=== PATIENT | female | born 1965 | race Caucasian/White ===

== ENCOUNTER → 2016-07-20 | Day surgery (SDC) | payer OTHER ==
--- NOTE | 2016-07-19 11:00 | History & Physical Pre-Op ---
General Information and HPI History of Present Illness: Patient is a 50-year-old 5 para 5 with heavy menstrual periods Allergies/Medications Allergies: Coded Allergies: codeine (NAUSEA / VOMITING 07/15/16) Home Med list Amlodipine Besylate 5 MG TABLET 1 TAB PO DAILY HTN (Reported) Past History Surgical History Pertinent Surgical History: non-contributory Review of Systems Review of Systems Constitutional: Reports: no symptoms. EENTM: Reports: no symptoms. Cardiovascular: Reports: no symptoms. Respiratory: Reports: no symptoms. GI: Reports: no symptoms. Genitourinary: Reports: see HPI. Musculoskeletal: Reports: no symptoms. Skin: Reports: no symptoms. Neurological/Psychological: Reports: no symptoms. Hematologic/Endocrine: Reports: no symptoms. Immunologic/Allergic: Reports: no symptoms. All Other Systems: Reviewed and Negative Exam & Diagnostic Data Last 24 Hrs of Vital Signs/I&O Vital signs stable Physical Exam: Chest: Clear to auscultation Cardiovascular: Normal S1, S2 Abdomen: Soft nontender Pelvic: Deferred to the OR Extremities: No clubbing cyanosis or edema Assessment/Plan Assessment/Plan: Menorrhagia D&C, hysteroscopy As Ranked By This Provider Problem List: 1. Menorrhagia
[~2016-07-20] VITALS: Ht 154.9 cm; Wt 119.7 kg
[~2016-07-20] MED LIST: AMLODIPINE BESYL5 M1 PO; IBUPROFEN800 M1 PO; MACROBID 100 M100 MG PO; PERCOCET 5-3251 EACH PO
--- NOTE | 2016-07-20 17:54 | Operative Report ---
Operative/Inv Procedure Report Surgery Date: 07/20/16 Name of Procedure: D&C hysteroscopy Pre-Operative Diagnosis: Menorrhagia Post-Operative Diagnosis: Same Estimated Blood Loss: less than 50ml Surgeon/Shagger: DAVE MARCIAL MD Anesthesia: local monitored anesthesi Operative/Procedure Note Note: The patient was brought to the operating room and placed on the OR table in the dorsal supine position. She was given adequate anesthesia and repositioned in a modified dorsal lithotomy. She was prepped and draped in usual sterile fashion. A weighted speculum was inserted into the vagina with the help of a Woolrich retractor a single-toothed tenaculum was attached to the anterior lip of cervix. Cervix was injected with 1% lidocaine with epinephrine 2-1/2 mL in each quadrant. An endocervical curettage was performed revealing a small amount of tissue. The uterus is then sounded to 8 cm. The cervix was serially dilated to accommodate the hysteroscope which was placed into the fundus and the saline infusion was activated. No abnormal findings were noted no polyps or fibroids or other. The hysteroscope was removed and the cervix was further dilated. Sharp curettage followed revealing a moderate amount of tissue. The end of the procedure hemostasis was good the instruments were removed and the patient was awakened and sent to recovery in good condition. All needle, sponge, and is recalcitrant correct at the end of the procedure 2.
== END ==
LOC: STS 01:12
DX: N92.0 Excessive and frequent menstruation with regular cycle (principal); N85.8 Other specified noninflammatory disorders of uterus; I10 Essential (primary) hypertension
CPT/HCPCS: 81025; 88305; J2250

== ENCOUNTER 2016-08-24 03:39 | Inpatient (IN) | payer OTHER ==
[~2016-08-24] VITALS: Ht 154.9 cm; Wt 119.3 kg
[~2016-08-24 03:39] MED LIST changes: -IBUPROFEN800 M1 PO; -MACROBID 100 M100 MG PO; -PERCOCET 5-3251 EACH PO
--- NOTE | 2016-08-24 07:10 | History & Physical Pre-Op ---
General Information and HPI Exam Limitations: no limitations History of Present Illness: This patient is a 50-year-old 5 para 5 with history of severe menorrhagia who presents for total abdominal hysterectomy and bilateral salpingectomy. She recently underwent a D&C for tissue diagnosis to rule out adenocarcinoma and is admitted today for definitive surgery. Allergies/Medications Allergies: Coded Allergies: acetaminophen (From PERCOCET) (Intermediate, ITCH 08/23/16) oxycodone (From PERCOCET) (Intermediate, ITCH 08/23/16) codeine (NAUSEA / VOMITING 07/15/16) Home Med list Amlodipine Besylate 5 MG TABLET 1 TAB PO DAILY HTN (Reported) Past History Medical History Cardiovascular: hypertension Isolation History: Standard Surgical History Pertinent Surgical History: D&C Past Family/Social History Psychosocial History Smoking Status: Never Smoked Review of Systems Review of Systems Constitutional: Denies: no symptoms, see HPI, chills, diaphoresis, fever, malaise, weakness, unexplained weight loss. EENTM: Denies: no symptoms, see HPI, blurred vision, double vision, visual changes, eye pain, eye drainage, eye tearing, icterus, ear discharge, ear pain, ear redness, hearing changes, nasal congestion, epistaxis, nasal pain, throat pain, throat swelling, mouth pain, tooth pain. Cardiovascular: Denies: no symptoms, see HPI, chest pain, edema, orthopena, palpitations, peripheral edema, syncope. Respiratory: Denies: no symptoms, see HPI, cough, hemoptysis, orthopnea, short of breath, sputum production, stridor, wheezing. GI: Denies: no symptoms, see HPI, abdominal pain, bloating, constipation, diarrhea, distention, bowel incontinence, melena, nausea, bloody stool, changes in stool, vomiting, steatorrhea. Genitourinary: Reports: see HPI. Musculoskeletal: Denies: no symptoms, see HPI, back pain, gout, joint pain, joint swelling, muscle pain, muscle stiffness, neck pain. Skin: Denies: no symptoms, see HPI, cysts, change in skin color, change in hair/nails, dryness, erythema, jaundice, lesions, lymphangitis, lumps, moles, rash. Neurological/Psychological: Denies: no symptoms, see HPI, anxiety, ataxia, cognitive dysfunction, confusion, depressed, dementia, emotional problems, headache, numbness, paresthesia, pre- existing deficit, petit mal seizures, tingling, tremors, tonic-clonic seizures, unable to move lower ext, unable to move upper ext, weakness, other. Hematologic/Endocrine: Denies: no symptoms, see HPI, bruising, bleeding, polyuria, polydipsia, other. Immunologic/Allergic: Denies: no symptoms, see HPI, splenectomy, HIV/AIDS, lymphadenopathy, other. All Other Systems: Reviewed and Negative Exam & Diagnostic Data Last 24 Hrs of Vital Signs/I&O Intake & Output 08/24 0800 08/24 0000 08/23 1600 Intake Total Output Total Balance Patient 261 lb Weight Physical Exam: HEENT: Normocephalic atraumatic Chest: Clear to auscultation Cardiovascular: Normal S1, S2 Abdomen: Soft, nontender, no mass Pelvic: Normal external genitalia, normal vagina, no descensus of uterus or cervix Extremities: No clubbing cyanosis or edema Neurologic: Nonfocal Assessment/Plan Assessment/Plan: Menorrhagia Total abdominal hysterectomy, bilateral salpingectomy. Bilateral oophorectomy As Ranked By This Provider Problem List: 1. Menorrhagia
--- NOTE | 2016-08-24 08:26 | Operative Report ---
Operative/Inv Procedure Report Surgery Date: 08/24/16 Name of Procedure: cystoscopY: bilateral stent insertion Pre-Operative Diagnosis: Menometrorrhagia Post-Operative Diagnosis: Same Estimated Blood Loss: scant Surgeon/Preparator: MD ALENA GARCIA-UROLOGY Anesthesia: general endotracheal tube Drains: 16FR LEONG Specimens: UCX Complications: NONE Operative/Procedure Note Note: The patient was taken to the operating room and placed on the OR table in supine position. Timeout was performed, with the patient awake, to confirm identify, planned procedures, anesthesia, antibiotics and other pertinent margaret-operative information. After adequate anesthesia, and IV antibiotics, the patient was placed in lithotomy Yellow-fin stirrups. She was then draped and prepped in the usual surgical fashion, including a vaginal prep. A 22 Greek cystoscope sheath with a 30 angle lens was inserted into the bladder without significant difficulty. The bladder was thoroughly and systematically examined, and was noted to be free of tumor, free of stone, free of endometriosis. Both ureteral orifices were in their orthotopic positions with clear reflux bilaterally. Under direct visualization the left orifice was intubated with a 5 Greek whistle-tip catheter, which was advanced easily into the left kidney pelvis. The right ureteral orifice was intubated with a second 5 Greek ureteral whistle tip catheter, and advanced into the right renal pelvis without difficulty. For identification purposes the blue marked stent went into the left kidney and the right ureteral stent was marked red. Urine culture was obtained and sent to pathology. The cystoscope was then removed leaving both stents in proper place. An 18 Greek Leong catheter was inserted draining clear fluid and 10 mL of sterile water was then placed in the balloon. The ends ureteral stents, which protruded externally, were taped to the Leong catheter in order to secure their position. The individual ureteral stents were then connected to their individual drainage devices. The patient tolerated the procedure well. All sponge needle and instrument count were correct at the end of this procedure. The patient was then placed in supine position with Venodyne's in place. At this point, Dr. Marinelli was able to proceed with the patient's surgery. Findings: NORMAL BLADDER Discharge Disposition: PROCEED WITH DR. MARINELLI CC: ALENA GARCIA MD
[2016-08-24 12:20] VITALS: BP 122/82
[2016-08-24 13:59] VITALS: BP 118/56
[2016-08-24 16:30] VITALS: BP 124/80
[2016-08-24 19:16] VITALS: BP 120/80
[2016-08-24 22:00] VITALS: BP 138/72
[2016-08-24 22:38] LABS: ABSOLUTE BASOPHIL COUNT 0 /CUMM (0.0-0.2); ABSOLUTE EOSINOPHIL COUNT 0 /CUMM (0.0-0.7); ABSOLUTE GRANULOCYTE CT 14.5 /CUMM (1.4-6.5); ABSOLUTE LYMPH COUNT 0.7 /CUMM (1.2-3.4); ABSOLUTE MONOCYTE COUNT 0.4 /CUMM (0.10-0.60); BASOPHIL % 0.2 % (0.0-2.0); EOSINOPHIL % 0 % (0-5); HEMATOCRIT 33.7 % (37-47); MEAN CORPUSCULAR HGB 22.6 PG (27.0-31.0); MEAN CORPUSCULAR HGB CONC 32.1 G/DL (33.0-37.0); MEAN CORPUSCULAR VOLUME 70.4 FL (81.0-99.0); MEAN PLATELET VOLUME 9.2 FL (7.4-10.4); PLATELET COUNT 335 /CUMM (130-400); RBC DISTRIBUTION WIDTH 17.2 % (11.5-14.5); WHITE BLOOD CELL COUNT 15.6 /CUMM (4.8-10.8)
[2016-08-24 23:08] LABS: GRANULOCYTE % 92.7 % (42.2-75.2)
[2016-08-25] VITALS (10 sets, daily range): BP systolic 112–138; BP diastolic 68–80
[2016-08-25 08:56] LABS: ABSOLUTE BASOPHIL COUNT 0 /CUMM (0.0-0.2); ABSOLUTE EOSINOPHIL COUNT 0 /CUMM (0.0-0.7); ABSOLUTE GRANULOCYTE CT 12.6 /CUMM (1.4-6.5); ABSOLUTE LYMPH COUNT 1.1 /CUMM (1.2-3.4); ABSOLUTE MONOCYTE COUNT 0.9 /CUMM (0.10-0.60); BASOPHIL % 0 % (0.0-2.0); EOSINOPHIL % 0 % (0-5); GRANULOCYTE % 86.4 % (42.2-75.2); HEMATOCRIT 29.6 % (37-47); MEAN CORPUSCULAR HGB 22.3 PG (27.0-31.0); MEAN CORPUSCULAR HGB CONC 31.7 G/DL (33.0-37.0); MEAN CORPUSCULAR VOLUME 70.5 FL (81.0-99.0); MEAN PLATELET VOLUME 9.7 FL (7.4-10.4); PLATELET COUNT 305 /CUMM (130-400); RED BLOOD CELL CT 4.19 /CUMM (4.20-5.40)
[2016-08-25 10:21] LABS: WHITE BLOOD CELL COUNT 14.5 /CUMM (4.8-10.8)
[2016-08-26 06:30] VITALS: BP 114/68
[2016-08-26] MEDS ORDERED: IBUPROFEN800 M1 PO (07:42)
[2016-08-26] MEDS ORDERED: PERCOCET 5-3251 EACH PO (07:42)
[2016-08-26 08:46] VITALS: BP 112/78
[2016-08-26 08:48] VITALS: BP 112/78
--- NOTE | 2016-08-30 20:21 | Operative Report ---
Operative/Inv Procedure Report Surgery Date: 08/24/16 Name of Procedure: Total abdominal hysterectomy bilateral salpingectomy and bilateral oophorectomy Pre-Operative Diagnosis: Menorrhagia Post-Operative Diagnosis: Same Estimated Blood Loss: 100 mL Surgeon/Fisher Terrapin: SASHA STRONG MD,DAVE Cook M.D. Anesthesia: general endotracheal tube Operative/Procedure Note Note: The patient was brought to the operating room and placed on the OR table in the dorsal supine position. She was given adequate general anesthesia and successfully intubated. She was placed into dorsal lithotomy and Dr. Del Valle placed ureteral stents which will be dictated by him. Anesthesia also placed a block at that time. After the procedure was finished she was repositioned into dorsal supine. A Ball catheter remained after Dr. Del Valle's procedure. The abdomen was prepped and draped in the usual sterile fashion. A Pfannenstiel skin incision was made with scalpel and this was taken down to the layer of the fascia. Fascia was nicked in the midline and extended bilaterally. The underlying rectus muscles were and the peritoneum was entered sharply. An O'Juan F-O'Garcia retractor was placed and opened. The intestines were packed away using moist laparotomy pads. A double-tooth tenaculum was attached to the fundus of the uterus which is approximately 14 weeks in size. Both ovaries appeared to be cystic and irregular. Fallopian tubes appeared to be normal. The right round ligament was sutured with 0 Polysorb and tagged the same procedure is repeated on the left. A bladder flap was then developed sharply with tension and this was taken down off the lower uterine segment and cervix. The right utero ovarian ligament complex was clamped suture ligated and transected with good hemostasis. Same procedure was repeated on the left stents. The right uterine artery was clamped transected and suture ligated with 0 Polysorb simple procedure is repeated on the left with good hemostasis. The cardinal ligaments were then sequentially clamped transected and suture ligated with 0 Polysorb. Hemostasis throughout. The vaginal cuff was entered and the specimen was removed and sent to pathology with the uterus and cervix complete. The vaginal cuff was then oversewn using 0 Polysorb in a running nonlocking and locking fashion. Attention was then paid to the ovaries. The right ovarian complex including the fallopian tube was grasped and doubly clamped and transected. It was then suture ligated with 0 Polysorb with good hemostasis. Same procedure was repeated on the left with good hemostasis. The pelvis was then copiously irrigated with warm normal saline and all of the suture sites were hemostatic. The risks include thrombotic powder was placed into the suture line for hemostasis. The laparotomy pads were removed as well as the retractor. Peritoneum was closed using 2-0 Polysorb in an interrupted fashion. The rectus muscles reapproximated using 0 Polysorb in an interrupted fashion. Fascia was closed with 0 Polysorb in a running nonlocking fashion. Subcutaneous tissues were then irrigated and coagulated were needed. The skin was closed using ayaan and a dry sterile dressing was applied to the wound vaginal exam was performed and noted to be intact. The stents were removed and the patient was then awakened and sent to recovery in good condition. All needle, sponge, and instrument counts were correct at the end of the procedure 2.
--- NOTE | 2016-09-17 10:20 | Surgical Discharge Summary ---
Visit Information Visit Dates Admission Date: 08/24/16 Discharge Date: 08/26/16 History of Present Illness Chief Complaint: Menorrhagia Medical History Blood Transfusion Hx: No Cardiovascular: hypertension History of MRSA: No History of VRE: No History of CDIFF: No Isolation History: Standard Surgical History Pertinent Surgical History: D&C Psychosocial History Where Do You Live? Home Who Do You Live With? Family Services at Home: None What is Your Primary Language? Welsh Review of Systems: Negative Hospital Course Course Attending Physician: DAVE MARCIAL MD Primary Care Physician: OMID SERRA MD Hospital Course: Patient was admitted and underwent total abdominal hysterectomy bilateral salpingo-oophorectomy without complication. She was sent to recovery in good condition. 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 Her vital signs are stable and she was afebrile. Her H&H returned within normal limits. Postoperative day #2 the patient was doing well and was discharged home. Allergies: Coded Allergies: codeine (NAUSEA / VOMITING 07/15/16) Disposition Summary Disposition Principal Diagnosis: Menorrhagia Additional Diagnosis: Status post hysterectomy Discharge Disposition: home health services Discharge Instructions General Discharge Information Code Status: Full Code Patient's Diet: Regular Patient's Activity: Pelvic rest with weight restriction Follow-Up Instructions/Appts: 1 week Medications at Discharge Discharge Medications: Continue taking these medications: Amlodipine Besylate (Amlodipine Besylate) 5 MG TABLET 1 Tablet ORAL DAILY Comments: did not receive in hospital
== END 2016-08-26 11:30 | DRG 513 ==
LOC: SDA 03:39 → ENRESERV 11:33 → 2NA 12:09 → ENPENDDIS 08-26 08:53 → 2NA 08-26 11:30
PROVIDERS: ADMIT Obstetrics & Gynecology
DX: N92.0 Excessive and frequent menstruation with regular cycle (principal); I10 Essential (primary) hypertension
CPT/HCPCS: 2NASP; 81025; 87086; 88305; 88307; J0131; J0694; J1100; J1170; J1200; J1650; J1885; J2405

== ENCOUNTER 2016-09-08 13:49 | Emergency (ER) | payer OTHER ==
[~2016-09-08 13:49] MED LIST changes: +IBUPROFEN800 M1 PO; +PERCOCET 5-3251 EACH PO
--- NOTE | 2016-09-08 17:05 | CT SCAN REPORT ---
EXAMINATION: CT ABDOMEN AND PELVIS WITHOUT CONTRAST CLINICAL INFORMATION: Right lower abdominal pain. Assess for hernia. Recent hysterectomy. COMPARISON: None TECHNIQUE: Multidetector volumetric imaging was performed from the superior aspect of the liver through the pubic symphysis. Sagittal and coronal reformatted images were obtained on the technologist's workstation. DLP: 1227 mGy-cm FINDINGS: LUNG BASES: There is platelike opacity within the right middle lobe and lingula as well as the lower lobes bilaterally. The imaged heart and pericardium appear unremarkable. LIVER, GALLBLADDER, AND BILIARY TREE: The liver is normal in size, shape, and attenuation. No focal hepatic lesion or biliary ductal dilatation is present. The gallbladder is unremarkable with no evidence of radiopaque gallstones, gallbladder wall thickening, or obvious pericholecystic inflammatory changes. PANCREAS: Unremarkable. SPLEEN: Unremarkable. ADRENAL GLANDS: Unremarkable. KIDNEYS AND URETERS: The kidneys are normal in size, shape, and attenuation. No hydronephrosis, hydroureter, or calculi seen. No perinephric stranding. BLADDER: Unremarkable. GASTROINTESTINAL TRACT: Loops of small bowel are normal in caliber. The large bowel is normal in caliber. There are a few scattered sigmoid diverticula without evidence of diverticulitis. A normal appendix is visualized. ABDOMINAL WALL: There are postsurgical changes in the right side of the pelvis. No drainable fluid collections in the pelvic wall. No incisional hernias are visualized. There is a small fat-containing. Umbilical hernia visualized. LYMPH NODES: No adenopathy VASCULAR: The aorta is normal in caliber. PELVIC VISCERA: There has been recent hysterectomy. Some platelike opacity in the central pelvis is compatible with postsurgical change. No adnexal masses. No extraluminal air. OSSEOUS STRUCTURES: No acute osseous abnormalities. 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 There are 5 nonrib-bearing lumbar type vertebral bodies. No significant scoliosis. No spondylolysis. There is asymmetric degenerative change of the right L5-S1 facet. IMPRESSION: Postsurgical changes in the pelvis and right pelvic wall after hysterectomy. No convincing incisional hernia. No convincing drainable fluid collections on this noncontrast examination. No extraluminal air. Few colonic diverticula without diverticulitis.
[2016-09-08 17:26] LABS: ABSOLUTE BASOPHIL COUNT 0 /CUMM (0.0-0.2); ABSOLUTE EOSINOPHIL COUNT 0.5 /CUMM (0.0-0.7); ABSOLUTE GRANULOCYTE CT 7.3 /CUMM (1.4-6.5); ABSOLUTE LYMPH COUNT 2.9 /CUMM (1.2-3.4); ABSOLUTE MONOCYTE COUNT 0.7 /CUMM (0.10-0.60); BASOPHIL % 0.4 % (0.0-2.0); EOSINOPHIL % 4.2 % (0-5); HEMATOCRIT 34.4 % (37-47); MEAN CORPUSCULAR HGB 22.3 PG (27.0-31.0); MEAN CORPUSCULAR HGB CONC 31.2 G/DL (33.0-37.0); MEAN CORPUSCULAR VOLUME 71.3 FL (81.0-99.0); PLATELET COUNT 374 /CUMM (130-400); RBC DISTRIBUTION WIDTH 16.8 % (11.5-14.5); RED BLOOD CELL CT 4.82 /CUMM (4.20-5.40); WHITE BLOOD CELL COUNT 11.4 /CUMM (4.8-10.8)
[2016-09-08] MEDS ORDERED: MACROBID 100 M100 MG PO (19:33)
--- NOTE | 2016-09-08 19:34 | ED GI/GU/ABDOMINAL COMPLAINT ---
History of Present Illness General Chief Complaint: General Adult Stated Complaint: SIB ?FOR CT SCAN Source: patient Exam Limitations: no limitations Vital Signs & Intake/Output Vital Signs & Intake/Output Vital Signs Date Time Temp Pulse Resp B/P B/P Pulse O2 O2 Flow FiO2 Mean Ox Delivery Rate 09/08 1945 97.5 88 18 172/94 09/08 1936 97.5 88 18 172/94 97 Room Air Room Air 09/08 1712 189/100 09/08 1601 97.1 86 18 198/110 99 09/08 1411 97.6 85 22 176/103 98 Allergies Coded Allergies: codeine (NAUSEA / VOMITING 07/15/16) Reconcile Medications Amlodipine Besylate 5 MG TABLET 1 TAB PO DAILY HTN (Reported) Nitrofurantoin Monohyd/M-Cryst (Macrobid 100 MG Capsule) 100 MG CAPSULE 1 CAP PO BID uti with food Triage Note: PER PT TOLD BY DR. KELLY TO COME OT ER FOR A ABD CT IT IS QUICKER THAN WAITING DAYS TO HAVE ONE, PT HAS HYSTERECTOMY ON 08/24 AND FELL DOWN 5 STAIRS FEW DAYS LATER, HAD F/U WITH HERBARIUM CURATOR AND BECAUSE PT HAVING PAIN STILL SENT TO ED, FOR CT. Triage Nurses Notes Reviewed? yes ? n Is pt currently ? No Onset: Abrupt Duration: week(s):, constant, continues in ED Timing: recent history Quality/Severity: moderate, sharpness Location: right lower quadrant Radiation: no radiation Activities at Onset: none Prior Abdominal Problems: none No Modifying Factors: none HPI: 50-year-old female comes into emergency room with complaints of abdominal pain. Patient had a complete hysterectomy a couple weeks ago. Sharp pain to right lower abdomen. Denies any changes in bowel movement. Denies any fever chills vomiting. Patient was sent in by Dr. Zurita for CT scan. Patient reports that she feels a bulge in her right side of her abdomen at nighttime especially. (SANFORD OLGUIN) Past History Travel History Traveled to [place] past 21 day No Medical History Any Pertinent Medical History? see below for history Neurological: NONE EENT: NONE Cardiovascular: hypertension Respiratory: NONE Gastrointestinal: NONE Hepatic: NONE Renal: NONE Musculoskeletal: NONE Psychiatric: NONE Endocrine: NONE HERBARIUM CURATOR/Reproductive: HYST 08/17 History of MRSA: No History of VRE: No History of CDIFF: No Surgical History Surgical History: D&C Psychosocial History Who do you live with Family Services at Home None What is your primary language Hungarian Tobacco Use: Never used Family History Hx Contributory? No (SANFORD OLGUIN) Review of Systems Review of Systems Constitutional: Reports: no symptoms. EENTM: Reports: no symptoms. Respiratory: Reports: no symptoms. Cardiovascular: Reports: no symptoms. GI: Reports: see HPI. Genitourinary: Reports: see HPI. Musculoskeletal: Reports: no symptoms. Skin: Reports: see HPI. Neurological/Psychological: Reports: no symptoms. Hematologic/Endocrine: Reports: no symptoms. Immunologic/Allergic: Reports: no symptoms. All Other Systems: Reviewed and Negative (SANFORD OLGUIN) Physical Exam Physical Exam General Appearance: well developed/nourished, alert, awake Head: atraumatic Eyes: Bilateral: normal appearance. Ears, Nose, Throat, Mouth: hearing grossly normal, moist mucous membrane Neck: normal inspection, full range of motion Respiratory: no respiratory distress Cardiovascular: regular rate/rhythm Gastrointestinal: soft, tenderness (RLQ), INCISION SITE SHOWS NO DRAINAGE, NO ERYTHEMA, NO HERNIA APPRECIATED, Back: normal inspection Extremities: normal range of motion Neurologic/Psych: awake, alert, oriented x 3, normal gait, normal mood/affect Skin: intact, normal color Core Measures ACS in differential dx? No Severe Sepsis Present: No Septic Shock Present: No (SANFORD OLGUIN) Progress Differential Diagnosis: appendicitis, biliary colic, bowel obstruction, cholecystitis, diverticulitis, endometritis, gastritis, hepatitis, hernia, hemorrhoids, ischemic bowel, inflamm bowel dis, intrauterine , kidney stone, ovarian cyst, ovarian torsion, pancreatitis, PID/cervicitis, peptic ulcer , PUD/GERD, perforated viscous, UTI/pyelo, HERNIA Plan of Care: Orders Procedure Date/time Status Add-on Test (ER Only) 09/08 1852 Active CULTURE,URINE 09/08 1820 Active URINALYSIS 09/08 1614 Complete LIPASE 09/08 1614 Complete COMPREHENSIVE METABOLIC PANEL 09/08 1614 Complete CBC WITHOUT DIFFERENTIAL 09/08 161 Complete Laboratory Tests 09/08/16 1820: Urine Color YEL, Urine Clarity CLEAR, Urine pH 5.5, Ur Specific [place] >= 1.030 , Urine Protein NEG, Urine Ketones NEG, Urine Nitrite NEG, Urine Bilirubin NEG, Urine Urobilinogen 0.2, Ur Leukocyte Esterase SMALL H, Ur Microscopic SEDIMENT EXAMINED, Urine RBC 1-3, Urine WBC 5-10 H, Ur Epithelial Cells FEW, Urine Bacteria MANY H, Urine Mucus FEW, Urine Hemoglobin SMALL H, Urine Glucose NEG 09/08/16 1717: Anion Gap 9, Estimated GFR > 60, BUN/Creatinine Ratio 28.3 H, Glucose 92, Calcium 9.3, Total Bilirubin 0.3, AST 14, ALT 21, Alkaline Phosphatase 79, Total Protein 6.8, Albumin 3.7, Globulin 3.1, Albumin/Globulin Ratio 1.2, Lipase 62, CBC w Diff NO MAN DIFF REQ, RBC 4.82, MCV 71.3 L, MCH 22.3 L, RDW 16.8 H, MPV 9.0, Gran % 64.0, Lymphocytes % 25.5, Monocytes % 5.9, Eosinophils % 4.2, Basophils % 0.4, Absolute Granulocytes 7.3 H, Absolute Lymphocytes 2.9, Absolute Monocytes 0.7 H, Absolute Eosinophils 0.5, Absolute Basophils 0, PUBS MCHC 31.2 L Microbiology 09/08 182 URINE ROUT: Urine Culture - RECD Diagnostic Imaging: Viewed by Me: CT Scan. Discussed w/RAD: CT Scan. Radiology Impression: SERVICE DATE: 09/08/16 EXAM TYPE: CAT - CT ABD & PELVIS W/O IV CONTRAS EXAMINATION: CT ABDOMEN AND PELVIS WITHOUT CONTRAST CLINICAL INFORMATION: Right lower abdominal pain. Assess for hernia. Recent hysterectomy. COMPARISON: None TECHNIQUE: Multidetector volumetric imaging was performed from the superior aspect of the liver through the pubic symphysis. Sagittal and coronal reformatted images were obtained on the technologist's workstation. DLP: 1227 mGy-cm FINDINGS: LUNG BASES: There is platelike opacity within the right middle lobe and lingula as well as the lower lobes bilaterally. The imaged heart and pericardium appear unremarkable. LIVER, GALLBLADDER, AND BILIARY TREE: The liver is normal in size, shape, and attenuation. No focal hepatic lesion or biliary ductal dilatation is present. The gallbladder is unremarkable with no evidence of radiopaque gallstones, gallbladder wall thickening, or obvious pericholecystic inflammatory changes. PANCREAS: Unremarkable. SPLEEN: Unremarkable. ADRENAL GLANDS: Unremarkable. KIDNEYS AND URETERS: The kidneys are normal in size, shape, and attenuation. No hydronephrosis, hydroureter, or calculi seen. No perinephric stranding. BLADDER: Unremarkable. GASTROINTESTINAL TRACT: Loops of small bowel are normal in caliber. The large bowel is normal in caliber. There are a few scattered sigmoid diverticula without evidence of diverticulitis. A normal appendix is visualized. ABDOMINAL WALL: There are postsurgical changes in the right side of the pelvis. No drainable fluid collections in the pelvic wall. No incisional hernias are visualized. There is a small fat-containing. Umbilical hernia visualized. LYMPH NODES: No adenopathy VASCULAR: The aorta is normal in caliber. PELVIC VISCERA: There has been recent hysterectomy. Some platelike opacity in the central pelvis is compatible with postsurgical change. No adnexal masses. No extraluminal air. OSSEOUS STRUCTURES: No acute osseous abnormalities. 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 There are 5 nonrib-bearing lumbar type vertebral bodies. No significant scoliosis. No spondylolysis. There is asymmetric degenerative change of the right L5-S1 facet. IMPRESSION: Postsurgical changes in the pelvis and right pelvic wall after hysterectomy. No convincing incisional hernia. No convincing drainable fluid collections on this noncontrast examination. No extraluminal air. Few colonic diverticula without diverticulitis. DICTATED BY: SERGEY BISHOP MD DATE/TIME DICTATED:09/08/161650 BASIC ACOUSTIC ANALYST:NAOMI DATE/TIME TRANSCRIBED:09/08/161650 Initial ED EKG: none (SANFORD OLGUIN) Departure Departure Disposition: HOME OR SELF CARE Condition: Stable Clinical Impression Primary Impression: Abdominal pain Secondary Impressions: UTI (urinary tract infection) Referrals: MARYSE JOSEPH,OMID Whitt (PCP/Family) Additional Instructions: Take macrobid as prescribed. Follow-up with general surgeon provided. Return if any concerns worsening symptoms. Please go over all results of today's visit with your primary care doctor. Contact your primary care doctor to let them know you were here in the emergency room. There may be nonspecific findings which may not be related to your visit today here in the emergency room but may require further evaluation and chronic monitoring by your primary care doctor. If you had a laceration today the chance of foreign body always remains. You should follow-up with your primary care doctor for recheck in 3-5 days for a wound check. If you had an x-ray done there is a chance that a fracture could have been missed on initial read and you should follow-up with your primary care doctor for repeat x-rays if symptoms persist. If your blood pressure was elevated here in the emergency room please have rechecked by her primary care doctor within the next 48 hours by your primary care doctor. If you were prescribed a narcotic here in the emergency room or any type of controlled substances you're not allowed to drive while taking this medication or operate any type of heavy machinery. Narcotics can make you feel lightheaded dizziness nausea and can cause constipation. 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 Thank you for choosing [facility] emergency room. Please return to the emergency room immediately if you have any other concerns worsening of symptoms. Departure Forms: Customer Survey General Discharge Information Prescriptions: Current Visit Scripts Nitrofurantoin Monohyd/M-Cryst (Macrobid 100 MG Capsule) 1 CAP PO BID #14 CAP with food Comments 09/08/2016 8:06:32 PM Patient clinically looks well. Nontoxic-appearing. In no apparent distress. Resting comfortably in room. No evidence of hernia on exam. Follow-up with primary care doctor. Return if any other concerns. Treated for UTI. (SANFORD OLGUIN) PA/CAD DETAILER Co-Sign Statement Statement: ED Attending supervision documentation- [] I saw and evaluated the patient. I have also reviewed all the pertinent lab results and diagnostic results. I agree with the findings and the plan of care as documented in the PA's/CAD DETAILER's documentation. [x] I have reviewed the ED Record and agree with the PA's/CAD DETAILER's documentation. [] Additions or exceptions (if any) to the PAs/CAD DETAILER's note and plan are summarized below: [] (PARI SAHNI DO)
[2016-09-08 19:46] VITALS: BP 172/94
== END 2016-09-08 19:48 ==
LOC: ERH 13:49
PROVIDERS: Physician Assistant Medical
DX: N39.0 Urinary tract infection, site not specified (principal)
CPT/HCPCS: 36415; 74176; 81001; 87086